=== PATIENT | female | born 1990 | race Caucasian/White ===

== ENCOUNTER 2016-11-28 17:33 | Emergency (ER) | payer OTHER ==
[~2016-11-28 17:33] MED LIST: IBUPROFEN600 MG PO; NORCO 5-325 TA1 EACH PO; ZYVOX600 MG PO
== END 2016-11-28 19:17 | disposition home or self-care (01) ==
LOC: ER1 17:33
DX: S29.9XXA Unspecified injury of thorax, initial encounter (principal); S39.91XA Unspecified injury of abdomen, initial encounter; L53.9 Erythematous condition, unspecified; V49.50XA Passenger injured in collision with unspecified motor vehicles in traffic accident, initial encounter; Y92.410 Unspecified street and highway as the place of occurrence of the external cause
CPT/HCPCS: 71010; 71250; 96374; 99284; J1885